=== PATIENT | male | born 1960 | race African-American/Black ===

== ENCOUNTER 2017-01-06 18:06 | Emergency (ER) | payer MEDICARE, OTHER ==
[~2017-01-06] VITALS: Ht 172.7 cm; Wt 120.0 kg
[~2017-01-06 18:06] MED LIST: BENA40TA3 PO; CLON0.3T PO; HYDR-3927 PO; LEVO250T2 PO; P20 PO; PRED5TAB48 PO; RISP4 PO; SLEEP MEDICATION
[2017-01-06] MEDS ORDERED: ONDANSETRON HCL 4MG/2ML VIAL IV STA (19:49)
[2017-01-06] MEDS ORDERED: KETOROLAC 30MG/ML VIAL IV STA (19:49)
[2017-01-06] MEDS ORDERED: MORPHINE SULFATE 4 MG/ML CPJ (NOT FOR IM USE) IV STA (19:49)
[2017-01-06 20:22] LABS: BASOPHILS % 0.9 % (0.0-2.0); HEMATOCRIT. 34.8 % (42.0-52.0); HEMOGLOBIN. 11.6 g/dL (14.0-18.0); LYMPHOCYTES % 20.1 % (20.0-50.0); MEAN CORPUSCULAR HEMOGLOBIN 28.4 pg (28.0-32.0); MEAN CORPUSCULAR VOLUME 85.7 fL (80.0-94.0); MEAN PLATELET VOLUME 7.6 fl (7.4-10.4); MONOCYTES % 11.2 % (2.0-8.0); NEUTROPHILS % 66.8 % (40.0-76.0); PLATELET 268 x1000/uL (130-400); RED BLOOD CELL COUNT 4.07 mill/uL (4.7-6.1)
[2017-01-06 20:25] LABS: CHLORIDE 97 mEq/L (98-107)
[2017-01-06 20:29] LABS: CARBON DIOXIDE 29 mEq/L (21-32)
[2017-01-06 20:32] LABS: D-DIMER 0.75 mg/L FEU (<0.50); INR 0.9; PARTIAL THROMBOPLASTIN TIME 26.8 sec (24.0-34.0); PROTHROMBIN TIME 9.8 sec
[2017-01-06 20:35] LABS: CREATINE KINASE 259 IU/L (39-308)
[2017-01-06 20:37] LABS: TROPONIN I < 0.02 ng/mL (0.00-0.04)
[2017-01-07 00:02] VITALS: BP 152/77
== END 2017-01-07 00:06 | disposition home or self-care (01) ==
LOC: ER 18:43
DX: M54.9 Dorsalgia, unspecified (principal); I13.2 Hypertensive heart and chronic kidney disease with heart failure and with stage 5 chronic kidney disease, or end stage renal disease; I50.9 Heart failure, unspecified; N18.6 End stage renal disease; F17.200 Nicotine dependence, unspecified, uncomplicated; Z99.2 Dependence on renal dialysis
CPT/HCPCS: 36415; 71010; 71250; 80053; 82550; 83605; 83690; 83880; 84443; 84484; 85025; 85379; 85610; 85730; 87040; 93005; 96374; 96375; 99285; 99406; J1885; J2270; J2405; Z7610

== ENCOUNTER 2018-04-05 05:55 | Inpatient (IN) | payer MEDICARE ==
[~2018-04-05] VITALS: Ht 190.5 cm; Wt 98.7 kg
[~2018-04-05 05:55] MED LIST changes: -BENA40TA3 PO; +BENA40TA9 PO; -SLEEP MEDICATION
[2018-04-05] MEDS ORDERED: HYDROCODONE/ACETAMINOPHEN 5/325MG TABLET PO ONE (07:00)
[2018-04-05 07:46] LABS: BASOPHILS % 1.4 % (0.0-2.0); EOSINOPHILS % 1.7 % (0.0-5.0); HEMATOCRIT. 41.5 % (42.0-52.0); HEMOGLOBIN. 13.6 g/dL (14.0-18.0); LYMPHOCYTES % 15.5 % (20.0-50.0); MEAN CORPUSCULAR HEMOGLOBIN 28.4 pg (28.0-32.0); MEAN CORPUSCULAR VOLUME 86.8 fL (80.0-94.0); MEAN PLATELET VOLUME 7.3 fl (7.4-10.4); MONOCYTES % 10.6 % (2.0-8.0); NEUTROPHILS % 70.8 % (40.0-76.0); PLATELET 280 x1000/uL (130-400); RED BLOOD CELL COUNT 4.77 mill/uL (4.7-6.1); RED CELL DISTRIBUTION WIDTH 17.8 % (11.6-14.6)
[2018-04-05 07:48] LABS: CHLORIDE 95 mEq/L (98-107); PROTHROMBIN TIME 10.2 sec (9.1-11.1)
[2018-04-05] MEDS ORDERED: CLONIDINE 0.2MG TABLET PO ONE (08:00)
[2018-04-05] MEDS ORDERED: CLONIDINE 0.1MG TABLET PO ONE (11:15)
[2018-04-05] MEDS ORDERED: ENOXAPARIN 40MG/0.4ML SYR SUBCUT SCH (12:15)
[2018-04-05] MEDS ORDERED: LORAZEPAM 0.5MG TABLET PO PRN (12:15)
[2018-04-05] MEDS ORDERED: GUAIFENESIN 200MG/10ML SUGAR FREE UDC PO PRN (12:15)
[2018-04-05] MEDS ORDERED: DOCUSATE SODIUM 100MG CAPSULE PO PRN (12:15)
[2018-04-05] MEDS ORDERED: MAGNESIUM/ALUMINUM HYDROXIDE/SIMETHICONE 30ML UDC PO PRN (12:15)
[2018-04-05] MEDS ORDERED: DIPHENHYDRAMINE 50MG/ML VIAL IV PRN (12:15)
[2018-04-05] MEDS ORDERED: NITROGLYCERIN 0.4MG TABLET SL SL PRN (12:15)
[2018-04-05] MEDS ORDERED: IPRATROPIUM/ALBUTEROL 0.5-3(2.5)MG/3ML NEB INH PRN (12:15)
[2018-04-05] MEDS ORDERED: ACETAMINOPHEN 325MG TABLET PO PRN (12:15)
[2018-04-05] MEDS: AMLODIPINE 10MG TABLET PO SCH (12:15)
[2018-04-05] MEDS ORDERED: ONDANSETRON HCL 4MG/2ML INJ IV PRN (12:15)
[2018-04-05] MEDS: SEVELAMER CARBONATE 800 MG TABLET PO SCH (15:50)
[2018-04-05] MEDS: HYDRALAZINE HCL 50MG TABLET PO SCH (16:45)
[2018-04-05 17:48] LABS: CREATINE KINASE MB FRACTION 2.1 ng/mL (0.5-3.6)
[2018-04-05 18:25] LABS: CLARITY URINE CLEAR (CLEAR); COLOR URINE YELLOW (YELLOW); KETONES URINE NEGATIVE (NEGATIVE); LEUKOCYTE ESTERASE URINE TRACE (NEGATIVE); NITRITE URINE NEGATIVE (NEGATIVE); OCCULT BLOOD URINE 2+ (NEGATIVE); PH URINE 6.5 (4.5-8.0); PROTEIN URINE 3+ (NEGATIVE); SPECIFIC GRAVITY URINE 1.012 (1.005-1.030); UROBILINOGEN URINE 0.2 E.U./dL (0.2-1.0)
[2018-04-05 18:45] LABS: *BARBITURATES SCREEN URINE NEGATIVE (NEGATIVE); *BENZODIAZEPINES SCREEN URINE NEGATIVE (NEGATIVE); *COCAINE SCREEN URINE NEGATIVE (NEGATIVE); METHADONE URINE SCREEN NEGATIVE (NEGATIVE)
[2018-04-05 18:47] LABS: *AMPHETAMINES SCREEN URINE NEGATIVE (NEGATIVE); CANNABINOID URINE SCREEN NEGATIVE (NEGATIVE); OPIATES URINE SCREEN NEGATIVE (NEGATIVE); PHENCYCLIDINE URINE SCREEN NEGATIVE (NEGATIVE)
[2018-04-05] MEDS ORDERED: ZOLPIDEM TARTRATE 5MG TABLET PO PRN (21:00)
[2018-04-05 21:30] VITALS: BP 173/104
[2018-04-05] MEDS: FAMOTIDINE 20MG TABLET PO SCH (23:11)
[2018-04-05] MEDS: TRAMADOL 50MG TABLET PO PRN (23:12)
[2018-04-05] MEDS: CLONIDINE 0.1MG TABLET PO PRN (23:36)
[2018-04-06 00:10] VITALS: BP 200/107
[2018-04-06] MEDS: LISINOPRIL 20MG TABLET PO SCH ×3 (00:15→20:05)
[2018-04-06] MEDS: METOPROLOL TARTRATE 25MG TABLET PO SCH ×3 (00:15→20:05)
[2018-04-06] MEDS: HYDRALAZINE HCL 50MG TABLET PO SCH ×4 (00:15→21:56)
[2018-04-06 00:40] LABS: CREATINE KINASE MB FRACTION 2.5 ng/mL (0.5-3.6)
[2018-04-06 04:00] VITALS: BP 173/97
[2018-04-06] MEDS: CLONIDINE 0.1MG TABLET PO PRN (06:16)
[2018-04-06] MEDS: TRAMADOL 50MG TABLET PO PRN ×2 (06:46→20:04)
[2018-04-06 08:00] VITALS: BP 162/92
[2018-04-06] MEDS: FOLIC ACID/VITAMIN B COMP W-C TABLET PO SCH (09:03)
[2018-04-06] MEDS: SEVELAMER CARBONATE 800 MG TABLET PO SCH ×3 (09:03→17:06)
[2018-04-06] MEDS: AMLODIPINE 10MG TABLET PO SCH (09:03)
[2018-04-06] MEDS: FAMOTIDINE 20MG TABLET PO SCH (09:03)
[2018-04-06] MEDS: ASPIRIN 325MG EC TABLET PO SCH (09:04)
[2018-04-06 12:00] VITALS: BP 163/89
[2018-04-06] MEDS: CLONIDINE 0.1MG TABLET PO SCH ×2 (14:22→21:56)
[2018-04-06] MEDS: ENOXAPARIN 30MG/0.3ML SYR SUBCUT SCH (14:22)
[2018-04-06 16:00] VITALS: BP 156/87
[2018-04-06 20:00] VITALS: BP 161/95
[2018-04-07] VITALS: BP 151/86
[2018-04-07 04:00] VITALS: BP 151/91
[2018-04-07] MEDS: CLONIDINE 0.1MG TABLET PO SCH ×2 (05:18→13:02)
[2018-04-07] MEDS: HYDRALAZINE HCL 50MG TABLET PO SCH ×3 (05:18→21:28)
[2018-04-07 07:26] LABS: BASOPHILS % 1.1 % (0.0-2.0); EOSINOPHILS % 4.8 % (0.0-5.0); HEMATOCRIT. 38.7 % (42.0-52.0); HEMOGLOBIN. 12.7 g/dL (14.0-18.0); LYMPHOCYTES % 25.7 % (20.0-50.0); MEAN CORPUSCULAR HEMOGLOBIN 28.7 pg (28.0-32.0); MEAN CORPUSCULAR VOLUME 87.4 fL (80.0-94.0); MONOCYTES % 13.4 % (2.0-8.0); PLATELET 252 x1000/uL (130-400); RED BLOOD CELL COUNT 4.43 mill/uL (4.7-6.1); RED CELL DISTRIBUTION WIDTH 17.7 % (11.6-14.6)
[2018-04-07 08:00] VITALS: BP 158/84
[2018-04-07 08:19] LABS: PHOSPHORUS 6.9 mg/dL (2.5-4.9)
[2018-04-07] MEDS: SEVELAMER CARBONATE 800 MG TABLET PO SCH ×3 (08:26→18:03)
[2018-04-07] MEDS: ASPIRIN 325MG EC TABLET PO SCH (08:26)
[2018-04-07] MEDS: FOLIC ACID/VITAMIN B COMP W-C TABLET PO SCH (08:26)
[2018-04-07] MEDS: FAMOTIDINE 20MG TABLET PO SCH (08:26)
[2018-04-07] MEDS: METOPROLOL TARTRATE 25MG TABLET PO SCH ×2 (08:33→21:28)
[2018-04-07] MEDS: LISINOPRIL 20MG TABLET PO SCH ×2 (08:33→21:28)
[2018-04-07] MEDS: AMLODIPINE 10MG TABLET PO SCH (08:33)
[2018-04-07 12:00] VITALS: BP 156/69
[2018-04-07] MEDS: CLONIDINE 0.2MG TABLET PO SCH ×2 (14:00→21:28)
[2018-04-07] MEDS: ENOXAPARIN 30MG/0.3ML SYR SUBCUT SCH (14:17)
[2018-04-07 16:00] VITALS: BP 170/92
[2018-04-07] MEDS: CLONIDINE 0.1MG TABLET PO PRN (18:02)
[2018-04-07 20:00] VITALS: BP 167/96
[2018-04-08] VITALS: BP 146/88
[2018-04-08 04:00] VITALS: BP 161/95
[2018-04-08] MEDS: CLONIDINE 0.1MG TABLET PO PRN (04:10)
[2018-04-08 05:00] VITALS: BP 145/89
[2018-04-08] MEDS: HYDRALAZINE HCL 50MG TABLET PO SCH (06:12)
[2018-04-08] MEDS: CLONIDINE 0.2MG TABLET PO SCH (06:12)
[2018-04-08 07:28] LABS: BASOPHILS % 1.1 % (0.0-2.0); EOSINOPHILS % 5.6 % (0.0-5.0); HEMATOCRIT. 38.6 % (42.0-52.0); HEMOGLOBIN. 12.6 g/dL (14.0-18.0); LYMPHOCYTES % 29.9 % (20.0-50.0); MEAN CORPUSCULAR HEMOGLOBIN 28.2 pg (28.0-32.0); MEAN CORPUSCULAR VOLUME 86.6 fL (80.0-94.0); MONOCYTES % 11.7 % (2.0-8.0); NEUTROPHILS % 51.7 % (40.0-76.0); PLATELET 235 x1000/uL (130-400); RED BLOOD CELL COUNT 4.46 mill/uL (4.7-6.1); RED CELL DISTRIBUTION WIDTH 17.5 % (11.6-14.6)
[2018-04-08] MEDS: SEVELAMER CARBONATE 800 MG TABLET PO SCH (07:51)
[2018-04-08] MEDS: TRAMADOL 50MG TABLET PO PRN (07:51)
[2018-04-08 08:00] VITALS: BP 111/73
[2018-04-08 08:17] LABS: PHOSPHORUS 6.2 mg/dL (2.5-4.9)
[2018-04-08] MEDS: METOPROLOL TARTRATE 25MG TABLET PO SCH (09:00)
[2018-04-08] MEDS: LISINOPRIL 20MG TABLET PO SCH (09:00)
[2018-04-08] MEDS: FAMOTIDINE 20MG TABLET PO SCH (09:39)
[2018-04-08] MEDS: ASPIRIN 325MG EC TABLET PO SCH (09:39)
[2018-04-08] MEDS: FOLIC ACID/VITAMIN B COMP W-C TABLET PO SCH (09:39)
[2018-04-08] MEDS: AMLODIPINE 10MG TABLET PO SCH (09:40)
[2018-04-08 10:18] VITALS: BP 111/73
[2018-04-08 12:00] VITALS: BP 148/77
== END 2018-04-08 13:00 | disposition home or self-care (01) | DRG 291 ==
LOC: ER 06:16 → 8WST 09:47 → EDBEDREQ 09:52 → CANRESERV 14:09 → ENRESERV 14:09
PROVIDERS: ADMIT Internal Medicine; ATTEND Internal Medicine
PROC: 5A1D70Z Performance of Urinary Filtration, Intermittent, Less than 6 Hours Per Day (ICD-10-PCS; principal; 2018-04-05)
PROC: 5A1D70Z Performance of Urinary Filtration, Intermittent, Less than 6 Hours Per Day (ICD-10-PCS; 2018-04-07)
DX: I13.2 Hypertensive heart and chronic kidney disease with heart failure and with stage 5 chronic kidney disease, or end stage renal disease (principal); I50.33 Acute on chronic diastolic (congestive) heart failure; N18.6 End stage renal disease; E44.1 Mild protein-calorie malnutrition; F20.0 Paranoid schizophrenia; D63.8 Anemia in other chronic diseases classified elsewhere; J44.9 Chronic obstructive pulmonary disease, unspecified; F17.210 Nicotine dependence, cigarettes, uncomplicated; J98.01 Acute bronchospasm; K11.1 Hypertrophy of salivary gland; E66.9 Obesity, unspecified; N40.0 Benign prostatic hyperplasia without lower urinary tract symptoms; K11.8 Other diseases of salivary glands; Z60.2 Problems related to living alone; Z79.82 Long term (current) use of aspirin; Z79.899 Other long term (current) drug therapy; Z99.2 Dependence on renal dialysis; Z68.27 Body mass index [BMI] 27.0-27.9, adult
CPT/HCPCS: 36415; 70490; 71045; 80048; 80053; 80061; 80305; 81003; 82550; 82553; 83036; 83605; 83690; 83735; 83880; 84100; 84484; 85025; 85610; 93005; 93970; 99285; J1650; J7030

== ENCOUNTER 2018-10-24 16:04 | Inpatient (IN) | payer MEDICARE ==
[~2018-10-24] VITALS: Ht 190.5 cm; Wt 107.0 kg
[2018-10-24] MEDS ORDERED: DILTIAZEM HCL 5MG/ML 5ML VIAL IV ONE ×2 (16:45→18:00)
[2018-10-24] MEDS ORDERED: NITROGLYCERIN OINT 1GM/INCH UDPKT TD ONE (16:45)
[2018-10-24 17:37] LABS: HEMATOCRIT. 32.1 % (42.0-52.0); HEMOGLOBIN. 10.4 g/dL (14.0-18.0); MEAN CORPUSCULAR HEMOGLOBIN 27.8 pg (28.0-32.0); MEAN PLATELET VOLUME 8.2 fl (7.4-10.4); PLATELET 267 x1000/uL (130-400); RED BLOOD CELL COUNT 3.74 mill/uL (4.7-6.1); RED CELL DISTRIBUTION WIDTH 15.8 % (11.6-14.6)
[2018-10-24 17:38] LABS: CHLORIDE 98 mEq/L (98-107)
[2018-10-24 17:41] LABS: D-DIMER 0.85 mg/L FEU (<0.50); PARTIAL THROMBOPLASTIN TIME 24.5 sec (23.4-31.0)
[2018-10-24] MEDS ORDERED: SODIUM CHLORIDE 0.9% 1,000 ML IV ONE (17:47)
[2018-10-24] MEDS ORDERED: MAGNESIUM/ALUMINUM HYDROXIDE/SIMETHICONE 30ML UDC PO PRN (18:45)
[2018-10-24] MEDS ORDERED: ENOXAPARIN 40MG/0.4ML SYR SUBCUT SCH (18:45)
[2018-10-24] MEDS ORDERED: DOCUSATE SODIUM 100MG CAPSULE PO PRN (18:45)
[2018-10-24] MEDS ORDERED: DIPHENHYDRAMINE 50MG/ML VIAL IV PRN (18:45)
[2018-10-24] MEDS ORDERED: CLONIDINE 0.1MG TABLET PO PRN (18:45)
[2018-10-24] MEDS ORDERED: TRAMADOL 50MG TABLET PO PRN (18:45)
[2018-10-24] MEDS ORDERED: ONDANSETRON HCL 4MG/2ML INJ IV PRN (18:45)
[2018-10-24] MEDS ORDERED: NITROGLYCERIN 0.4MG TABLET SL SL PRN ×2 (18:45)
[2018-10-24] MEDS ORDERED: GUAIFENESIN 200MG/10ML SUGAR FREE UDC PO PRN (18:45)
[2018-10-24] MEDS ORDERED: ACETAMINOPHEN 325MG TABLET PO PRN (18:45)
[2018-10-24 20:03] LABS: PLATELET ESTIMATE NORMAL
[2018-10-24] MEDS ORDERED: HEPARIN 25,000 UNITS PREMIX 500 ML IV SCH ×2 (20:45→21:00)
[2018-10-24] MEDS ORDERED: DILTIAZEM HCL 90MG TABLET PO ONE (20:45)
[2018-10-24] MEDS ORDERED: HEPARIN 5000 UNITS/ML VIAL IV ONE (20:45)
[2018-10-24] MEDS ORDERED: HEPARIN 5000 UNITS/ML VIAL IV NR (21:00)
[2018-10-25] VITALS (12 sets, daily range): BP systolic 123–185; BP diastolic 70–97
[2018-10-25] MEDS ORDERED: ENOXAPARIN 80MG/0.8ML SYR SUBCUT SCH
[2018-10-25] MEDS: HYDRALAZINE HCL 50MG TABLET PO SCH ×4 (00:17→23:06)
[2018-10-25] MEDS: METOPROLOL TARTRATE 25MG TABLET PO SCH ×3 (00:18→20:40)
[2018-10-25 00:56] LABS: CREATINE KINASE MB FRACTION 5.8 ng/mL (0.5-3.6)
[2018-10-25] MEDS: DILTIAZEM HCL 60MG TABLET PO SCH ×5 (01:39→23:05)
[2018-10-25] MEDS: LORAZEPAM 0.5MG TABLET PO PRN ×2 (02:47→23:10)
[2018-10-25] MEDS ORDERED: SEVELAMER CARBONATE 800 MG TABLET PO SCH (07:20)
[2018-10-25] MEDS: ASPIRIN 325MG EC TABLET PO SCH (08:03)
[2018-10-25] MEDS: FAMOTIDINE 20MG TABLET PO SCH (08:03)
[2018-10-25] MEDS: FOLIC ACID/VITAMIN B COMP W-C TABLET PO SCH (08:04)
[2018-10-25] MEDS: IPRATROPIUM/ALBUTEROL 0.5-3(2.5)MG/3ML NEB INH PRN ×2 (12:21→20:55)
[2018-10-25 12:30] LABS: BG BASE EXCESS -2.7 mmol/L (-2.0-2.0); BG DEOXYHEMOGLOBIN 4.9 % (0.0-5.0); BG FRACTION INSPIRED OXYGEN 28; BG METHEMOGLOBIN 0.3 % (0.0-1.5); BG OXYGEN SATURATION 95.1 % (92.0-98.5); BG OXYHEMOGLOBIN 94.8 % (94.0-97.0); BG PCO2 43.8 mmHg (35.0-45.0); BG PH 7.339 (7.350-7.450); BG PO2 80.9 mmHg (75.0-100.0); BG SAMPLE SITE RIGHT BRACHIAL; BG TOTAL HEMOGLOBIN 10.6 g/dL (12.0-18.0); BG VENT MODE NASAL CANNULA
[2018-10-25] MEDS ORDERED: DIVA125T2 PO (12:31)
[2018-10-25] MEDS: CALCIUM ACETATE 667MG CAPSULE PO SCH ×2 (12:34→17:08)
[2018-10-25] MEDS ORDERED: DIGOXIN 500MCG/2ML AMP IV NR (18:25)
[2018-10-25] MEDS: DIVALPROEX SODIUM 250MG DR TABLET PO SCH (20:40)
[2018-10-25] MEDS: RISPERIDONE 1MG TABLET PO SCH (20:41)
[2018-10-25] MEDS ORDERED: DIVALPROEX SODIUM 125MG EC TABLET PO SCH (21:00)
[2018-10-25] MEDS: ENOXAPARIN 120MG/0.8ML SYR SUBCUT SCH (23:06)
[2018-10-26] VITALS (13 sets, daily range): BP systolic 143–171; BP diastolic 68–90
[2018-10-26] MEDS: ZOLPIDEM TARTRATE 5MG TABLET PO PRN (00:39)
[2018-10-26] MEDS: IPRATROPIUM/ALBUTEROL 0.5-3(2.5)MG/3ML NEB INH PRN ×4 (00:40→21:34)
[2018-10-26] MEDS: DILTIAZEM HCL 60MG TABLET PO SCH ×3 (06:32→18:15)
[2018-10-26] MEDS: FOLIC ACID/VITAMIN B COMP W-C TABLET PO SCH (08:37)
[2018-10-26] MEDS: CALCIUM ACETATE 667MG CAPSULE PO SCH ×3 (08:37→18:14)
[2018-10-26] MEDS: HYDRALAZINE HCL 50MG TABLET PO SCH ×2 (08:38→18:15)
[2018-10-26] MEDS: FAMOTIDINE 20MG TABLET PO SCH (08:38)
[2018-10-26] MEDS: METOPROLOL TARTRATE 25MG TABLET PO SCH ×2 (08:38→20:29)
[2018-10-26] MEDS: ASPIRIN 325MG EC TABLET PO SCH (08:38)
[2018-10-26] MEDS: NICOTINE 14MG PATCH TD SCH (08:39)
[2018-10-26] MEDS ORDERED: RISPERIDONE 1MG TABLET PO SCH (09:00)
[2018-10-26 09:12] LABS: BASOPHILS % 0.9 % (0.0-2.0); EOSINOPHILS % 1.3 % (0.0-5.0); HEMOGLOBIN. 9.9 g/dL (14.0-18.0); LYMPHOCYTES % 21.1 % (20.0-50.0); MEAN CORPUSCULAR HEMOGLOBIN 28.3 pg (28.0-32.0); MEAN CORPUSCULAR VOLUME 85.9 fL (80.0-94.0); MONOCYTES % 13.6 % (2.0-8.0); NEUTROPHILS % 63.1 % (40.0-76.0); PLATELET 256 x1000/uL (130-400); RED BLOOD CELL COUNT 3.49 mill/uL (4.7-6.1); RED CELL DISTRIBUTION WIDTH 15.5 % (11.6-14.6)
[2018-10-26 09:35] LABS: PHOSPHORUS 4.8 mg/dL (2.5-4.9)
[2018-10-26] MEDS: RISPERIDONE 1MG TABLET PO SCH ×2 (09:46→20:30)
[2018-10-26] MEDS ORDERED: SODIUM POLYSTYRENE SULFONATE 15 G/60 ML BOT PO SCH (12:00)
[2018-10-26] MEDS: LORAZEPAM 0.5MG TABLET PO PRN (14:42)
[2018-10-26] MEDS: DIVALPROEX SODIUM 250MG DR TABLET PO SCH (20:29)
[2018-10-26] MEDS ORDERED: EPOETIN ALFA 4000UNITS/ML VIAL SUBCUT SCH (21:00)
[2018-10-27] VITALS (13 sets, daily range): BP systolic 147–180; BP diastolic 68–94
[2018-10-27] MEDS: HYDRALAZINE HCL 50MG TABLET PO SCH ×3 (00:53→16:00)
[2018-10-27] MEDS: DILTIAZEM HCL 60MG TABLET PO SCH ×4 (00:53→18:28)
[2018-10-27] MEDS: ENOXAPARIN 120MG/0.8ML SYR SUBCUT SCH (00:54)
[2018-10-27] MEDS: IPRATROPIUM/ALBUTEROL 0.5-3(2.5)MG/3ML NEB INH PRN ×4 (00:54→13:55)
[2018-10-27 07:04] LABS: PHOSPHORUS 6.3 mg/dL (2.5-4.9)
[2018-10-27 07:10] LABS: BASOPHILS % 0.7 % (0.0-2.0); EOSINOPHILS % 3.3 % (0.0-5.0); HEMATOCRIT. 28.5 % (42.0-52.0); HEMOGLOBIN. 9.5 g/dL (14.0-18.0); LYMPHOCYTES % 20.5 % (20.0-50.0); MEAN CORPUSCULAR HEMOGLOBIN 28.3 pg (28.0-32.0); MEAN CORPUSCULAR VOLUME 84.9 fL (80.0-94.0); MEAN PLATELET VOLUME 8.3 fl (7.4-10.4); MONOCYTES % 13.9 % (2.0-8.0); NEUTROPHILS % 61.6 % (40.0-76.0); PLATELET 248 x1000/uL (130-400); RED BLOOD CELL COUNT 3.36 mill/uL (4.7-6.1); RED CELL DISTRIBUTION WIDTH 15.4 % (11.6-14.6)
[2018-10-27] MEDS: FAMOTIDINE 20MG TABLET PO SCH (08:39)
[2018-10-27] MEDS: RISPERIDONE 1MG TABLET PO SCH ×2 (08:39→21:37)
[2018-10-27] MEDS: ASPIRIN 325MG EC TABLET PO SCH (08:39)
[2018-10-27] MEDS: CALCIUM ACETATE 667MG CAPSULE PO SCH ×3 (08:39→18:28)
[2018-10-27] MEDS: FOLIC ACID/VITAMIN B COMP W-C TABLET PO SCH (08:39)
[2018-10-27] MEDS: METOPROLOL TARTRATE 25MG TABLET PO SCH ×2 (08:40→21:37)
[2018-10-27] MEDS: NICOTINE 14MG PATCH TD SCH (08:40)
[2018-10-27] MEDS ORDERED: EPOETIN ALFA 4000UNITS/ML VIAL SUBCUT SCH (21:00)
[2018-10-27] MEDS: DIVALPROEX SODIUM 250MG DR TABLET PO SCH (21:36)
[2018-10-28] VITALS (8 sets, daily range): BP systolic 152–164; BP diastolic 74–89
[2018-10-28] MEDS: DILTIAZEM HCL 60MG TABLET PO SCH ×2 (00:55→05:53)
[2018-10-28] MEDS: HYDRALAZINE HCL 50MG TABLET PO SCH ×2 (00:55→10:04)
[2018-10-28] MEDS: ENOXAPARIN 120MG/0.8ML SYR SUBCUT SCH (00:56)
[2018-10-28] MEDS: ZOLPIDEM TARTRATE 5MG TABLET PO PRN (01:36)
[2018-10-28] MEDS: IPRATROPIUM/ALBUTEROL 0.5-3(2.5)MG/3ML NEB INH PRN ×2 (04:28→09:02)
[2018-10-28 06:21] LABS: EOSINOPHILS % 2.9 % (0.0-5.0); HEMATOCRIT. 29.2 % (42.0-52.0); HEMOGLOBIN. 9.5 g/dL (14.0-18.0); LYMPHOCYTES % 19.8 % (20.0-50.0); MEAN CORPUSCULAR HEMOGLOBIN 27.7 pg (28.0-32.0); MEAN CORPUSCULAR VOLUME 85.5 fL (80.0-94.0); MONOCYTES % 12.1 % (2.0-8.0); NEUTROPHILS % 64.2 % (40.0-76.0); PLATELET 247 x1000/uL (130-400); RED BLOOD CELL COUNT 3.41 mill/uL (4.7-6.1); RED CELL DISTRIBUTION WIDTH 15.1 % (11.6-14.6)
[2018-10-28 06:41] LABS: PHOSPHORUS 5.6 mg/dL (2.5-4.9)
[2018-10-28] MEDS: FOLIC ACID/VITAMIN B COMP W-C TABLET PO SCH (08:14)
[2018-10-28] MEDS: RISPERIDONE 1MG TABLET PO SCH (08:14)
[2018-10-28] MEDS: METOPROLOL TARTRATE 25MG TABLET PO SCH (08:14)
[2018-10-28] MEDS: FAMOTIDINE 20MG TABLET PO SCH (08:15)
[2018-10-28] MEDS: NICOTINE 14MG PATCH TD SCH (08:15)
[2018-10-28] MEDS: ASPIRIN 325MG EC TABLET PO SCH (08:15)
[2018-10-28] MEDS: CALCIUM ACETATE 667MG CAPSULE PO SCH (08:15)
[2018-10-28] MEDS ORDERED: SODIUM POLYSTYRENE SULFONATE 15 G/60 ML BOT PO NR (08:30)
== END 2018-10-28 13:03 | disposition home or self-care (01) | DRG 291 ==
LOC: ER 16:04 → ENRESERV 21:33 → 3WST 23:54
PROVIDERS: ADMIT Internal Medicine; ATTEND Internal Medicine
PROC: 5A1D70Z Performance of Urinary Filtration, Intermittent, Less than 6 Hours Per Day (ICD-10-PCS; 2018-10-24)
PROC: 5A1D70Z Performance of Urinary Filtration, Intermittent, Less than 6 Hours Per Day (ICD-10-PCS; principal; 2018-10-27)
DX: I13.2 Hypertensive heart and chronic kidney disease with heart failure and with stage 5 chronic kidney disease, or end stage renal disease (principal); N18.6 End stage renal disease; I50.33 Acute on chronic diastolic (congestive) heart failure; F20.0 Paranoid schizophrenia; N25.81 Secondary hyperparathyroidism of renal origin; J98.11 Atelectasis; N17.9 Acute kidney failure, unspecified; I48.0 Paroxysmal atrial fibrillation; D63.8 Anemia in other chronic diseases classified elsewhere; F17.210 Nicotine dependence, cigarettes, uncomplicated; J44.9 Chronic obstructive pulmonary disease, unspecified; E83.39 Other disorders of phosphorus metabolism; K11.1 Hypertrophy of salivary gland; Z99.2 Dependence on renal dialysis
CPT/HCPCS: 36415; 36600; 71045; 78582; 80048; 80061; 82375; 82550; 82553; 82805; 83036; 83735; 83880; 84100; 84443; 84484; 85379; 93005; 93306; 93970; 94640; 94660; 96374; 97162; 97166; 99285; A9558; J0885; J1160; J1644; J1650; J3490; J7030; J7620

== ENCOUNTER 2019-01-28 16:43 | Emergency (ER) | payer MEDICARE ==
[~2019-01-28] VITALS: Ht 170.2 cm; Wt 95.0 kg
[~2019-01-28 16:43] MED LIST changes: +DIVA125T2 PO
[2019-01-28 17:23] LABS: BASOPHILS % 1.4 % (0.0-2.0); EOSINOPHILS % 3.9 % (0.0-5.0); HEMOGLOBIN. 9.5 g/dL (14.0-18.0); LYMPHOCYTES % 18.9 % (20.0-50.0); MEAN CORPUSCULAR HEMOGLOBIN 27.6 pg (28.0-32.0); MEAN CORPUSCULAR VOLUME 84.6 fL (80.0-94.0); MEAN PLATELET VOLUME 8.3 fl (7.4-10.4); MONOCYTES % 14.8 % (2.0-8.0); PLATELET 167 x1000/uL (130-400); RED BLOOD CELL COUNT 3.43 mill/uL (4.7-6.1); RED CELL DISTRIBUTION WIDTH 17.5 % (11.6-14.6)
[2019-01-28 17:28] LABS: CHLORIDE 104 mEq/L (98-107)
[2019-01-28] MEDS ORDERED: PIPERACILLIN/TAZ 3.375G PREMIX 50 ML IV ONE (18:00)
[2019-01-28] MEDS ORDERED: VANCOMYCIN 1 G PREMIX 200 ML IV ONE (18:00)
[2019-01-28 18:10] LABS: BG BASE EXCESS -2.8 mmol/L (-2.0-2.0); BG CARBOXYHEMOGLOBIN 3.3 % (0.5-1.5); BG DEOXYHEMOGLOBIN 9.4 % (0.0-5.0); BG HCO3 ACT 22.5 mmol/L (22.0-26.0); BG METHEMOGLOBIN 0.3 % (0.0-1.5); BG OXYGEN SATURATION 90.2 % (92.0-98.5); BG PCO2 41.2 mmHg (35.0-45.0); BG PH 7.356 (7.350-7.450); BG PO2 59.8 mmHg (75.0-100.0); BG SAMPLE SITE RIGHT BRACHIAL; BG TOTAL HEMOGLOBIN 10.6 g/dL (12.0-18.0); BG VENT MODE ROOM AIR
[2019-01-28] MEDS ORDERED: ALBUTEROL (0.083%) 2.5MG/3ML NEB HHN ONE (20:15)
[2019-01-28 21:38] VITALS: BP 166/97
== END 2019-01-28 22:07 | disposition short-term general hospital (02) ==
LOC: ER 16:43 → CANBEDREQ 23:05
DX: R06.03 Acute respiratory distress (principal); J18.9 Pneumonia, unspecified organism; Y95 Nosocomial condition; I13.2 Hypertensive heart and chronic kidney disease with heart failure and with stage 5 chronic kidney disease, or end stage renal disease; N18.6 End stage renal disease; I50.9 Heart failure, unspecified; Z99.2 Dependence on renal dialysis
CPT/HCPCS: 36415; 36600; 71045; 80053; 82375; 82805; 83880; 84484; 85025; 87040; 93005; 94640; 94660; 96365; 96368; 99291; J2543; J3370; J7611